=== PATIENT | male | born 1975 | race Caucasian/White ===

== ENCOUNTER 2020-09-30 17:51 | Emergency (ER) | payer OTHER ==
[2020-09-30 18:40] LABS: HEMOGLOBIN 14.8 gm/dl (14.0-17.5); RED BLOOD COUNT 4.64 M/UL (4.20-5.50); WHITE BLOOD COUNT 10.4 K/UL (4.5-11.0)
[2020-09-30 19:07] LABS: BUN/CREATININE RATIO 14 (0-10)
[2020-09-30] MEDS ORDERED: ZOFRAN ODT 4 MG4 MG PO (20:30)
[2020-09-30] MEDS ORDERED: AUGMENTIN 875-1 EACH PO (20:30)
[2020-09-30] MEDS ORDERED: LODINE CAP 300300 MG PO (20:30)
[2020-09-30] MEDS ORDERED: BENTYL 20MG TAB20 MG PO (20:30)
== END 2020-09-30 20:41 | disposition home or self-care (01) ==
LOC: ER1 17:51
PROVIDERS: Physician Assistant
DX: K57.32 Diverticulitis of large intestine without perforation or abscess without bleeding (principal)
CPT/HCPCS: 80053; 81001; 83605; 83690; 85025; 87086; 96374; 96375; 99284; J2270; J2405; Q9967

== ENCOUNTER 2021-03-02 16:31 | Emergency (ER) | payer OTHER ==
[~2021-03-02] VITALS: Ht 167.6 cm; Wt 104.3 kg
[~2021-03-02 16:31] MED LIST: AUGMENTIN 875-1 EACH PO; BENTYL 20MG TAB20 MG PO; LODINE CAP 300300 MG PO; ZOFRAN ODT 4 MG4 MG PO
== END 2021-03-02 19:30 | disposition home or self-care (01) ==
LOC: ER1 16:31
DX: U07.1 COVID-19 (principal); Z23 Encounter for immunization
CPT/HCPCS: 99283; M0243

== ENCOUNTER 2021-12-10 11:38 | Emergency (ER) | payer OTHER ==
[2021-12-10] MEDS ORDERED: CEPHALEXIN500 M1 PO (18:17)
== END 2021-12-10 19:03 | disposition home or self-care (01) ==
LOC: ER1 11:38
DX: S56.423A Laceration of extensor muscle, fascia and tendon of right middle finger at forearm level, initial encounter (principal); W26.8XXA Contact with other sharp object(s), not elsewhere classified, initial encounter; Y92.89 Other specified places as the place of occurrence of the external cause; Y90.0 Blood alcohol level of less than 20 mg/100 ml
CPT/HCPCS: 12001; 73130; 90715; 99283; J0690